=== PATIENT | female | born 1990 | race Two or more races ===

== ENCOUNTER 2019-08-25 10:37 | Outpatient (CLI) | payer OTHER | END 2019-08-25 10:43 | disposition home or self-care (01) | LOC: LAB 10:37 | PROVIDERS: ATTEND Plastic Surgery | DX: Z20.828 Contact with and (suspected) exposure to other viral communicable diseases (principal); Z11.59 Encounter for screening for other viral diseases; Z03.818 Encounter for observation for suspected exposure to other biological agents ruled out ==

== ENCOUNTER 2019-08-29 05:47 | Day surgery (SDC) | payer OTHER | END 2019-08-29 12:35 | disposition home or self-care (01) | LOC: CIR.AMB 05:47 | PROVIDERS: ATTEND Plastic Surgery | DX: N64.82 Hypoplasia of breast (principal); Z20.828 Contact with and (suspected) exposure to other viral communicable diseases ==

== ENCOUNTER 2023-12-04 08:47 | Outpatient (CLI) | payer OTHER | END 2023-12-04 09:10 | disposition home or self-care (01) | LOC: TOM 08:47 | PROVIDERS: ATTEND Radiology Diagnostic Radiology | DX: S00.93XA Contusion of unspecified part of head, initial encounter (principal) ==